=== PATIENT | female | born 1965 | race Caucasian/White ===

== ENCOUNTER → 2024-02-01 | Outpatient (CLI) | payer OTHER ==
[~2024-02-01] MED LIST: ALBUTEROL0.83 MG/ML IH; ALDACTONE 25MG25 M1 PO; ASPIRIN E.C. 8181 MG PO; BUMEX 1MG TA1 MG/TA1 PO; DESYREL 50MG50 MG PO; DUO-KAPS1 CAP PO; FARXIGA10 PO; FOLIC ACID 11 MG/TA1 PO; IBU800 M1 PO; JARDIANCE10; LIPITOR 40MG TA40 MG PO; NATURE'S BLEND100 M2 PO; PREDNISONE20 MG PO; PRINIVIL2.5 MG PO; PROAIR HFA0.09 MG/AC IH; REQUIP0.25 MG PO; TOPROL XL 25MG25 MG PO; TRIAMCINOLONE A15 GM TP; TYLENOL PM EXTR1 TA1 PO; ZYRTEC 10MG10 MG PO
[2024-02-02 19:57] LABS: TB GOLD INTERPRETATION Negative (Negative)
== END ==
LOC: COL.LAB 12:03
PROVIDERS: Internal Medicine Pulmonary Disease
DX: R91.1 Solitary pulmonary nodule (principal)

== ENCOUNTER → 2024-02-10 | Outpatient (CLI) | payer OTHER ==
[2024-02-11 17:17] LABS: TB GOLD INTERPRETATION Negative (Negative)
[2024-02-13 05:42] LABS: HISTOPLASMA MYCELIAL Negative (Neg:<1:2)
[2024-02-13 14:08] LABS: HISTOPLASMA ID Negative (Negative); HISTOPLASMA YEAST Negative (Neg:<1:2)
== END ==
LOC: COL.LAB 13:13
PROVIDERS: Internal Medicine Pulmonary Disease
DX: R91.1 Solitary pulmonary nodule (principal)